=== PATIENT | female | born 1945 | race Caucasian/White ===

== ENCOUNTER 2016-09-29 11:34 | Emergency (ER) | payer OTHER ==
[2016-09-29] MEDS ORDERED: NS 1,000 ML IV ONE (12:22)
--- NOTE | 2016-09-29 12:25 | EDPHY ---
H & P Stated Complaint: Abd pain,n/v/d. None today;feels better;sent by PCP for eval Time Seen by Provider: 09/29/16 12:08 HPI/ROS: CHIEF COMPLAINT: Nausea, vomiting, abdominal pain, diarrhea HISTORY OF PRESENT ILLNESS: The patient presents to the ED with nausea, vomiting, epigastric pain and diarrhea for the past 5 days. 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 The patient denies prior history of abdominal surgery. She states that she has been unable to eat without vomiting for the past 4 days. The patient contacted her primary care provider who referred to the ED for evaluation. The patient has had some bouts of diarrhea with the symptoms. She denies hematemesis or hematochezia. The patient states she typically drinks 2-3 alcoholic beverages a day. She has not been on recent antibiotics or travel outside the [place]. The patient states that her symptoms are currently moderate in nature. REVIEW OF SYSTEMS: A comprehensive 10 point review of systems is otherwise negative aside from elements mentioned in the history of present illness. Source: Patient Exam Limitations: No limitations - Personal History Current Tetanus Diphtheria and Acellular Pertussis (TDAP): Yes - Medical/Surgical History Other PMH: reflux. MAT. depression/anxiety. TIA. diverticulosis - Social History Smoking Status: Never smoked - Physical Exam Exam: General Appearance: Alert, no distress Eyes: Pupils equal and round no pallor or injection ENT, Mouth: Mucous membranes moist Respiratory: There are no retractions, lungs are clear to auscultation Cardiovascular: Regular rate and rhythm Gastrointestinal: Epigastric tenderness to palpation, normal bowel sounds, no peritoneal signs Neurological: A&O, normal motor function, normal sensory exam, normal cranial nerves Skin: Warm and dry, no rashes Musculoskeletal: Neck is supple nontender Extremities: symmetrical, full range of motion Constitutional: Initial Vital Signs Temperature (C) 36.9 C 09/29/16 11:35 Heart Rate 78 09/29/16 11:35 Respiratory Rate 18 09/29/16 11:35 Blood Pressure 106/77 09/29/16 11:35 O2 Sat (%) 97 09/29/16 11:35 O2 Delivery Mode Room Air Allergies/Adverse Reactions: No Known Allergies Allergy (Unverified 09/29/16 11:38) Home Medications: Medication Instructions Recorded Acebutolol HCl [Sectral 200 mg (*)] 200 mg PO BID 09/29/16 Esomeprazole Mag Trihydrate 40 mg PO 09/29/16 [Nexium] LORazepam [Ativan (*)] 1 mg PO 09/29/16 Levothyroxine [Synthroid 50 mcg 09/29/16 (*)] Metoclopramide [Reglan 10 mg tab 10 mg PO ACHS 09/29/16 (*)] Solifenacin Succinate [Vesicare 5 09/29/16 MG (*)] buPROPion SR [Wellbutrin 150mg SR 150 mg PO 09/29/16 (*)] celeCOXIB [Celebrex (*)] 200 mg PO 09/29/16 Medical Decision Making - Diagnostics Imaging Results: Imaging Impressions Abdomen CT 09/29/16 13:05 Impression: 1. Minimal air in the bladder, which could be related to instrumentation or infection. 2. Small bowel at the upper limits of normal in caliber, without evidence of obstruction. This could be related to enteritis or ileus. 3. Small hiatal hernia. 4. Coronary artery atherosclerosis. 5. Additional findings as above. Findings discussed with Sandor Lozada on September 29, 2016 at 2:14 p.m. ED Course/Re-evaluation: The patient presents to the ED for evaluation of abdominal pain, vomiting and diarrhea. The patient was noted to have mild tenderness to palpation in her epigastrium. The patient was taken for a CT scan of the abdomen pelvis given her tenderness and age which demonstrates findings consistent with enteritis. There is no evidence of a perforation, obstruction or other surgical condition. The patient's urine dipstick demonstrates no evidence of an acute infection. The patient is re-evaluated several times. At 2:43 p.m. I find her abdominal examination to be benign. I do feel the patient is presenting to the ED with symptoms consistent with gastroenteritis. She should continue to manage her symptoms with anti emetics and Imodium as needed. I do feel it is reasonable to have the patient observe her symptoms over the next 8-12 hours and return to see us for any progression of her symptoms or worsening condition. The patient will follow up with her primary care provider as needed. Differential Diagnosis: Differential diagnosis considered includes perforation, obstruction, pancreatitis, cholecystitis, gastroenteritis - Data Points Laboratory Results: Laboratory Results 09/29/16 12:10 09/29/16 12:10 09/29/16 09/29/16 12:10 12:10 WBC 9.79 10^3/uL H 10^3/uL (3.80-9.50) RBC 4.88 10^6/uL 10^6/uL (4.18-5.33) Hgb 14.6 g/dL g/dL (12.6-16.3) Hct 43.7 % % (38.0-47.0) MCV 89.5 fL fL (81.5-99.8) MCH 29.9 pg pg (27.9-34.1) MCHC 33.4 g/dL g/dL (32.4-36.7) RDW 14.8 % % (11.5-15.2) Plt Count 185 10^3/uL 10^3/uL (150-400) MPV 11.4 fL fL (8.7-11.7) Neut % (Auto) 61.9 % % (39.3-74.2) Lymph % (Auto) 18.6 % % (15.0-45.0) Howell % (Auto) 18.7 % H % (4.5-13.0) Eos % (Auto) 0.0 % L % (0.6-7.6) Baso % (Auto) 0.2 % L % (0.3-1.7) Nucleat RBC Rel Count 0.2 % % (0.0-0.2) Absolute Neuts (auto) 6.06 10^3/uL 10^3/uL (1.70-6.50) Absolute Lymphs (auto) 1.82 10^3/uL 10^3/uL (1.00-3.00) Absolute Monos (auto) 1.83 10^3/uL H 10^3/uL (0.30-0.80) Absolute Eos (auto) 0.00 10^3/uL L 10^3/uL (0.03-0.40) Absolute Basos (auto) 0.02 10^3/uL 10^3/uL (0.02-0.10) Absolute Nucleated RBC 0.02 10^3/uL H 10^3/uL (0-0.01) Immature Gran % 0.6 % % (0.0-1.1) Immature Gran # 0.06 10^3/uL 10^3/uL (0.00-0.10) Sodium 133 mEq/L L mEq/L (134-144) Potassium 4.1 mEq/L mEq/L (3.5-5.2) Chloride 97 mEq/L mEq/L (97-110) Carbon Dioxide 19 mEq/l L mEq/l (22-31) Anion Gap 17 mEq/L H mEq/L (8-16) BUN 15 mg/dL mg/dL (7-23) Creatinine 0.9 mg/dL mg/dL (0.6-1.0) Estimated GFR > 60 Glucose 112 mg/dL H mg/dL (70-100) Calcium 9.0 mg/dL mg/dL (8.5-10.4) Total Bilirubin 0.9 mg/dL mg/dL (0.1-1.4) Conjugated Bilirubin 0.4 mg/dL mg/dL (0.0-0.5) Unconjugated Bilirubin 0.5 mg/dL mg/dL (0.0-1.1) AST 30 IU/L IU/L (14-46) ALT 23 IU/L IU/L (9-52) Alkaline Phosphatase 91 IU/L IU/L (38-126) Total Protein 7.8 g/dL g/dL (6.3-8.2) Albumin 4.4 g/dL g/dL (3.5-5.0) Lipase 247.0 IU/L IU/L (23-300) Medications Given: Discontinued Medications Sodium Chloride (Ns) 1,000 mls @ 0 mls/hr IV EDNOW ONE; Wide Open PRN Reason: Protocol Stop: 09/29/16 12:23 Last Admin: 09/29/16 12:30 Dose: 1,000 mls Departure - Departure Disposition: Home, Routine, Self-Care Clinical Impression: Acute abdominal pain, Vomiting Condition: Good Instructions: Acute Abdominal Pain (ED) Additional Instructions: Sometimes we are unable to diagnose an obvious cause of abdominal pain in the Emergency Department. Based upon our evaluation today, I believe your abdominal pain, vomiting diarrhea is secondary to a viral intestinal infection. Because more serious conditions can be difficult to diagnose early in the course of their presentation, we ask that you return to the Emergency Department in 8-12 hours for a recheck if you are still having pain. This is necessary to exclude the development of a more serious condition such as appendicitis or other intra-abdominal emergency. In the event your pain markedly increases before that time or you develop intractable vomiting or fever return to the Emergency Department immediately. Referrals: Johny Pope MD [Primary Care Provider] - As per Instructions
[2016-09-29 12:28] LABS: % IMMATURE GRANULYOCYTES 0.6 % (0.0-1.1); ABSOLUTE IMMATURE GRANULOCYTES 0.06 10^3/uL (0.00-0.10); ABSOLUTE NRBC COUNT 0.02 10^3/uL (0-0.01); ADD DIFF? NO; ADD MORPH? NO; ADD SCAN? NO; ATYPICAL LYMPHOCYTE FLAG 0 (0-99); FRAGMENT RBC FLAG 0 (0-99); HEMATOCRIT 43.7 % (38.0-47.0); HEMOGLOBIN 14.6 g/dL (12.6-16.3); LEFT SHIFT FLG 0 (0-99); LIPEMIA HEMOLYSIS FLAG 80 (0-99); MEAN CELL HEMOGLOBIN 29.9 pg (27.9-34.1); MEAN CELL HEMOGLOBIN CONCENTR. 33.4 g/dL (32.4-36.7); MEAN CELL VOLUME 89.5 fL (81.5-99.8); MEAN PLATELET VOLUME 11.4 fL (8.7-11.7); NRBC-AUTO% 0.2 % (0.0-0.2); PLATELET CLUMPS FLAG 20 (0-99); PLATELET COUNT 185 10^3/uL (150-400); RED BLOOD CELL COUNT 4.88 10^6/uL (4.18-5.33); RED CELL DISTRIBUTION WIDTH 14.8 % (11.5-15.2)
[2016-09-29 12:40] LABS: ALANINE AMINOTRANSFERASE 23 IU/L (9-52); ALBUMIN 4.4 g/dL (3.5-5.0); ALKALINE PHOSPHATASE 91 IU/L (38-126); ANION GAP 17 mEq/L (8-16); ASPARTATE AMINOTRANSFERASE 30 IU/L (14-46); BILIRUBIN,TOTAL 0.9 mg/dL (0.1-1.4); BILIRUBIN-CONJUGATED 0.4 mg/dL (0.0-0.5); BILIRUBIN-UNCONJUGATED 0.5 mg/dL (0.0-1.1); CARBON DIOXIDE 19 mEq/l (22-31); CHLORIDE 97 mEq/L (97-110); CREATININE 0.9 mg/dL (0.6-1.0); GLOMERULAR FILTRATION RATE > 60; GLUCOSE 112 mg/dL (70-100); POTASSIUM 4.1 mEq/L (3.5-5.2); SODIUM 133 mEq/L (134-144); TOTAL PROTEIN 7.8 g/dL (6.3-8.2)
[2016-09-29] MEDS ORDERED: IOPAMIDOL (ISOVUE-300) 100 ML BTL ONE (13:14)
[2016-09-29 15:18] VITALS: BP 99/65; PULSE 73; RESP 16; TEMP 98.2; O2SAT 92
== END 2016-09-29 15:18 | disposition home or self-care (01) ==
DX: R10.13 Epigastric pain (principal); R11.10 Vomiting, unspecified; E86.9 Volume depletion, unspecified
CPT/HCPCS: 74177; 96360; 99285; Q9967

== ENCOUNTER → 2016-12-09 | Outpatient (CLI) | payer OTHER | LOC: FIMAGING 13:29 | PROVIDERS: ATTEND Internal Medicine | DX: Z12.39 Encounter for other screening for malignant neoplasm of breast (principal); N63 Unspecified lump in breast | CPT/HCPCS: 76641; G0204 ==

== ENCOUNTER → 2018-04-13 | Outpatient (CLI) | payer OTHER | LOC: FIMAGING 14:43 | PROVIDERS: ATTEND Internal Medicine | DX: Z12.31 Encounter for screening mammogram for malignant neoplasm of breast (principal); Z80.3 Family history of malignant neoplasm of breast ==